=== PATIENT | female | born 1985 | race Caucasian/White ===

== ENCOUNTER 2023-03-13 08:18 | Emergency (ER) | payer MEDICARE ==
[~2023-03-13] VITALS: Ht 160 cm; Wt 63.9 kg
--- NOTE | 2023-03-13 08:59 | ED GU-Female ---
General Chief Complaint: OB < 20 WEEKS Stated Complaint: 18 WEEKS PREG | THINKS WATER BROKE Source: patient Exam Limitations: no limitations History of Present Illness Date Seen by Provider: Mar 13, 2023 Time Seen by Provider: 08:30 Initial Comments Here with report of being approximately 18 weeks and having 2 gushes of fluid this morning. She does admit to being sexually active last night with her boyfriend. Last night she was going to the bathroom and felt like she had a pass gas. She pushed a little bit more and noted to gush of fluid followed by another gush of fluid. She has had some intermittent spotting throughout and that continues. Denies persistent fluid drainage or bleeding cur rently. Has OB care from Dr. Barragan. Denies fever or chills. Denies nausea or vomiting. Denies other concerns. Timing/Duration: this morning Severity/Quality: mild Location: vaginal Radiation: none Activities at Onset: rest Sexual Concrete History: less than 2 months ago Associated Symptoms: No abdominal pain, No fever/chills, No lower back pain, No nausea/vomiting, No urinary frequency Allergies and Home Medications Allergies Coded Allergies: No Known Drug Allergies (Unverified , 03/13/23) Patient Home Medication List Home Medication List Reviewed: Yes Review of Systems Review of Systems Constitutional: see HPI Respiratory: no symptoms reported Cardiovascular: no symptoms reported Gastrointestinal: no symptoms reported Genitourinary: see HPI : Yes Musculoskeletal: no symptoms reported Skin: no symptoms reported Psychiatric/Neurological: No Symptoms Reported Past Euijpso-Cxasod-Zokqgz Hx Patient Social History Tobacco Use?: Yes Tobacco type used: Cigarettes Substance use?: Yes Substance type: Marijuana Alcohol Use?: No Family Medical History Reviewed Nursing Family Hx Physical Exam Vital Signs Vital Signs - First Documented 03/13/23 08:30 Temp 37.1 Pulse 100 Resp 18 B/P (MAP) 121/77 (92) Pulse Ox 98 O2 Delivery Room Air Capillary Refill : Height, Weight, BMI Height: '" Weight: lbs. oz. kg; BMI Method: General Appearance: WD/WN, no apparent distress Neck: full range of motion, supple Cardiovascular: regular rate, rhythm, no murmur Respiratory: lungs clear, normal breath sounds Gastrointestinal: non tender, soft Neurologic/Psychiatric: alert, oriented x 3 Skin: normal color, warm/dry Progress/Results/Core Measures Suspected Sepsis SIRS Temperature: Pulse: Respiratory Rate: Blood Pressure / Mean: Results/Orders Lab Results Laboratory Tests Test 03/13/23 08:39 Range/Units Urine Color YELLOW Urine Clarity CLEAR Urine pH 5.5 5-9 Urine Specific [place] 1.020 1.016-1.022 Urine Protein NEGATIVE NEGATIVE Urine Glucose (UA) NEGATIVE NEGATIVE Urine Ketones NEGATIVE NEGATIVE Urine Nitrite NEGATIVE NEGATIVE Urine Bilirubin NEGATIVE NEGATIVE Urine Urobilinogen 0.2 < = 1.0 MG/DL Urine Leukocyte Esterase NEGATIVE NEGATIVE Urine RBC (Auto) 1+ H NEGATIVE Urine RBC 2-5 H /HPF Urine WBC NONE /HPF Urine Squamous Epithelial Cells 10-25 H /HPF Urine Crystals PRESENT H /LPF Urine Amorphous Sediment FEW DEEP URATES H /LPF Urine Bacteria NEGATIVE /HPF Urine Casts NONE /LPF Urine Mucus NEGATIVE /LPF Urine Culture Indicated NO Micro Results Microbiology 03/13/23 Wet Prep - Final, Complete My Orders Orders - MARGIE AGUILA MD Wet Prep (03/13/23 08:35) Us Limited [id number] (03/13/23 08:35) Ua Culture If Indicated (03/13/23 08:59) Amoxicillin Capsule (Amoxicillin Capsule (03/13/23 09:57) Vital Signs/I&O 03/13/23 08:30 Temp 37.1 Pulse 100 Resp 18 B/P (MAP) 121/77 (92) Pulse Ox 98 O2 Delivery Room Air Capillary Refill : Progress Note : Progress Note Seen and evaluated. We will get ultrasound or OB as well as check nitrazine strip and wet prep. Ordered. Monitor patient. 0905: lawn technician reported that there is scant amniotic fluid but there is heart tones. Nursing able to get heart tones of 165. I have paged on-call for OB for [facility], Dr Escamilla. Monitor patient. 0918: I discussed the case with Dr. Escamilla and he is going to try to get some further information if he can get in contact with maternal- health and he will call me back for further guidance. I did notify the mother of the concerns. She is aware. Pending results. 1007: I have spoken with Dr. Escamilla And he will work on getting follow-up with maternal- health in [place] next week. They are recommending amoxicillin 875 twice daily as well as azithromycin Z-Bruce 5-day. We will initiate amoxicillin 1 g p.o. now as we do not have the 875 version here. She will continue that outpatient. I will also initiate metronidazole 500 mg p.o. as she does have bacterial vaginosis and this was verified with Dr. Escamilla. All of the findings and concerns were discussed with the patient. She has high risk for demise and this was discussed. She was instructed to take temperature twice daily and drink plenty of fluids and follow-up bedrest. Discharged home with return precautions. Patient verbalized understanding of instructions and agreement with plan. Departure Impression Primary Impression: Premature rupture of membranes Qualified Codes: O42.912 - premature rupture of membranes, unspecified as to length of time between rupture and onset of labor, second trimester Additional Impressions: Threatened miscarriage Bacterial vaginosis in Disposition: HOME, SELF-CARE Condition: Stable Departure-Patient Inst. Decision time for Depature: 10:12 Referrals: FARZANA GARCIA MD (PCP/Family) Primary Care Physician Patient Instructions: Premature Rupture of Membranes (DC), Bleeding Later in , Threatened Miscarriage (DC), Bacterial vaginosis Add. Discharge Instructions: All discharge instructions reviewed with patient and/or family. Voiced understanding. Take medications as directed. Drink plenty of fluids. You should rest and no heavy lifting and no intercourse or any other items intravaginally. Follow-up with maternal- health in [place] as scheduled. The clinic will call you for appointment. You should check your temperature twice daily and record. You should return if you are having fever, increased vaginal bleeding especially greater than 2 pads per hour for more than 2 hours, weakness, breathing problems or other concerns as needed. Try to eat a normal diet. Scripts Amoxicillin (Amoxicillin) 875 Mg Tablet 875 MG PO BID for 7 Days, #14 TAB Prov: MARGIE AGUILA MD 03/13/23 Metronidazole (Metronidazole) 500 Mg Tablet 500 MG PO BID, #14 TAB 0 Refills Prov: MARGIE AGUILA MD 03/13/23 Azithromycin (Azithromycin) 250 Mg Tablet 250 MG PO UD, #6 TAB TAKE 2 TABLETS ON DAY ONE THEN TAKE 1 TABLET DAILY FOR FOUR MORE DAYS Prov: MARGIE AGUILA MD 03/13/23 Work/School Note: Work Release Form Date Seen in the Emergency Department: Mar 13, 2023 Return to Work: Mar 20, 2023 Restrictions: Need Release from Doctor Copy Copies To 1: ANTHONY BARRAGAN MD Copies To 2: AZUCENA ESCAMILLA MD, TIMOTHY D MD Mar 13, 2023 08:59
[2023-03-13 09:11] LABS: BILIRUBIN,URINE NEGATIVE (NEGATIVE); CLARITY,URINE CLEAR; COLOR,URINE YELLOW; GLUCOSE, URINE (UA) NEGATIVE (NEGATIVE); KETONES,URINE NEGATIVE (NEGATIVE); LEUKOCYTE ESTERASE ,URINE NEGATIVE (NEGATIVE); NITRITE,URINE NEGATIVE (NEGATIVE); PH,URINE 5.5 (5-9); PROTEIN,URINE NEGATIVE (NEGATIVE)
[2023-03-13 09:12] LABS: AMORPHOUS SEDIMENT,UR FEW AMOR URATES /LPF; BACTERIA,URINE NEGATIVE /HPF
[2023-03-13] MEDS ORDERED: AMOXICILLIN 500 MG CAPSULE PO STA (09:57)
[2023-03-13] MEDS ORDERED: metroNIDAZOLE 500 MG TABLET PO STA (10:06)
[2023-03-13] MEDS ORDERED: AMOX875T2 PO (10:13)
[2023-03-13] MEDS ORDERED: METR-145 PO (10:13)
[2023-03-13] MEDS ORDERED: AZIT250T12 PO (10:13)
[2023-03-13 10:28] VITALS: BP 101/52
--- NOTE | 2023-03-13 10:38 | Diagnostic Imaging Report ---
INDICATION: Leaking fluid, rule out premature rupture of membranes. Limited OB ultrasound There is a single living intrauterine in cephalic presentation. Placenta is anterior and low but not a previa. EDE is severely low. Cervix contains some fluid in the endocervical canal. Cervical length is 3.5 cm. heart rate was 163 bpm. IMPRESSION: Severe oligohydramnios. Dictated by: Dictated on workstation # [id number]
== END 2023-03-13 10:28 | disposition home or self-care (01) ==
LOC: ER 08:22
DX: O20.0 Threatened abortion (principal); O42.912 Preterm premature rupture of membranes, unspecified as to length of time between rupture and onset of labor, second trimester; O23.592 Infection of other part of genital tract in pregnancy, second trimester; B96.89 Other specified bacterial agents as the cause of diseases classified elsewhere; O99.332 Smoking (tobacco) complicating pregnancy, second trimester; F17.210 Nicotine dependence, cigarettes, uncomplicated; Z3A.18 18 weeks gestation of pregnancy
CPT/HCPCS: 76815; 81000; 84703; 87210

== ENCOUNTER 2023-03-15 04:11 | Emergency (ER) | payer MEDICARE ==
[~2023-03-15] VITALS: Ht 160 cm; Wt 63.9 kg
[~2023-03-15 04:11] MED LIST: AMOX875T2 PO; AZIT250T12 PO; METR-145 PO
[2023-03-15] MEDS ORDERED: fentaNYL INJECTION 100 MCG/2 ML VIAL ONE (04:28)
[2023-03-15] MEDS ORDERED: fentaNYL INJECTION 100 MCG/2 ML VIAL IVP ONE ×2 (04:30→05:00)
[2023-03-15] MEDS ORDERED: fentaNYL INJECTION 100 MCG/2 ML VIAL IM ONE (04:30)
--- NOTE | 2023-03-15 04:33 | ED GU-Female ---
General Chief Complaint: OB < 20 WEEKS Stated Complaint: ABD PAIN, CONTRACTIONS,SOB Source: patient Exam Limitations: no limitations History of Present Illness Date Seen by Provider: Mar 15, 2023 Time Seen by Provider: 04:20 Initial Comments Patient is a 37-year-old female approximately 18 weeks who was seen in the emergency room 03-13-2023 with a diagnosis of premature rupture of membranes. She was placed on antibiotics and strict bed rest. This morning at approximately 1 AM she noted onset of contractions. She states they have been coming every 20 minutes or so and getting closer and closer. She complains of severe pain. She is short of breath. She is nauseous. with EDC 08/17/23 (places her at 18 0/7 today). Currently on abx per Dr Fonseca after her visit to the ED on 03-13-23 for PROM. US showed at that time "severe oligohydramnios" with HR 160's. Timing/Duration: this morning (99) Severity/Quality: severe Location: suprapubic Activities at Onset: none Associated Symptoms: nausea/vomiting Allergies and Home Medications Allergies Coded Allergies: No Known Drug Allergies (Unverified , 03/13/23) Patient Home Medication List Home Medication List Reviewed: Yes Amoxicillin (Amoxicillin) 875 Mg Tablet, 875 MG PO BID Prescribed by: MARGIE AGUILA on 03/13/23 1013 Azithromycin (Azithromycin) 250 Mg Tablet, 250 MG PO UD Prescribed by: MARGIE AGUILA on 03/13/23 1013 Metronidazole (Metronidazole) 500 Mg Tablet, 500 MG PO BID Prescribed by: MARGIE AGUILA on 03/13/23 1013 Review of Systems Review of Systems Constitutional: see HPI Gastrointestinal: abdominal pain Genitourinary: discharge : Yes Expected Date of Delivery: Aug 17, 2023 Musculoskeletal: no symptoms reported Skin: no symptoms reported Past Hmrmquj-Jqcogv-Jwwzts Hx Immunizations Up To Date First/Initial COVID19 Vaccinat: NOT VACC Past Medical History Surgery/Hospitalization HX: DENIES Physical Exam Vital Signs Vital Signs - First Documented 03/15/23 04:18 Temp 36.0 Pulse 111 Resp 36 B/P (MAP) 101/81 (88) Pulse Ox 100 O2 Delivery Room Air Capillary Refill : Height, Weight, BMI Height: '" Weight: lbs. oz. kg; 24.00 BMI Method: General Appearance: WD/WN, moderate distress HEENT: PERRL/EOMI Cardiovascular: regular rate, rhythm, tachycardia Respiratory: lungs clear, normal breath sounds, no respiratory distress, no accessory muscle use Gastrointestinal: soft, other (fundus just below umbilicus; ) Pelvic: other (fetus palpated in the vaginal vault) Extremities: normal range of motion, normal inspection Neurologic/Psychiatric: no motor/sensory deficits, alert, oriented x 3 Skin: normal color, warm/dry Progress/Results/Core Measures Suspected Sepsis SIRS Temperature: Pulse: Respiratory Rate: Laboratory Tests 03/15/23 04:25: White Blood Count 24.7H Blood Pressure / Mean: Laboratory Tests 03/15/23 04:25: Platelet Count 239 Results/Orders Lab Results Laboratory Tests Test 03/15/23 04:25 Range/Units White Blood Count 24.7 H 4.3-11.0 10^3/uL Red Blood Count 4.03 3.80-5.11 10^6/uL Hemoglobin 13.1 11.5-16.0 g/dL Hematocrit 38 35-52 % Mean Corpuscular Volume 94 80-99 fL Mean Corpuscular Hemoglobin 33 25-34 pg Mean Corpuscular Hemoglobin Concent 35 32-36 g/dL Red Cell Distribution Width 14.4 10.0-14.5 % Platelet Count 239 130-400 10^3/uL Mean Platelet Volume 9.6 9.0-12.2 fL Immature Granulocyte % (Auto) 1 % Neutrophils (%) (Auto) 82 H 42-75 % Lymphocytes (%) (Auto) 10 L 12-44 % Monocytes (%) (Auto) 7 0-12 % Eosinophils (%) (Auto) 0 0-10 % Basophils (%) (Auto) 0 0-10 % Neutrophils # (Auto) 20.2 H 1.8-7.8 10^3/uL Lymphocytes # (Auto) 2.5 1.0-4.0 10^3/uL Monocytes # (Auto) 1.7 H 0.0-1.0 10^3/uL Eosinophils # (Auto) 0.1 0.0-0.3 10^3/uL Basophils # (Auto) 0.1 0.0-0.1 10^3/uL Immature Granulocyte # (Auto) 0.1 0.0-0.1 10^3/uL My Orders Orders - ADRIANNE BEAN MD Fentanyl Injection (Fentanyl Injection (03/15/23 04:30) Ed Iv/Invasive Line Start (03/15/23 04:28) Cbc With Automated Diff (03/15/23 04:28) Fentanyl Injection (Fentanyl Injection (03/15/23 04:30) Fentanyl Injection (Fentanyl Injection (03/15/23 04:28) Manual Differential (03/15/23 04:25) Lactated Ringers 1,000 Ml (Lactated Ring (03/15/23 04:45) Fentanyl Injection (Fentanyl Injection (03/15/23 05:00) Medications Given in ED Current Medications Medications Dose Ordered Sig/Tamie Route Start Time Stop Time Status Last Admin Dose Admin Fentanyl Citrate 50 mcg ONCE ONCE IM 03/15/23 04:30 03/15/23 04:31 DC 03/15/23 04:33 50 MCG Fentanyl Citrate 50 mcg ONCE ONCE IVP 03/15/23 04:30 03/15/23 04:31 DC 03/15/23 04:31 50 MCG Vital Signs/I&O 03/15/23 04:18 Temp 36.0 Pulse 111 Resp 36 B/P (MAP) 101/81 (88) Pulse Ox 100 O2 Delivery Room Air Capillary Refill : Progress Note : Time: 04:54 Progress Note Patient seen and evaluated by me - evaluation today includes physical exam and CBC. Pertinent physical exam findings, thin female moderated distress due to abdominal pain. Obviously leonora. Gentle pelvic exam demonstrates palpable fetus in the vaginal vault with blood mucousy discharge. Patient actively in labor with . Case discussed with Dr Levin, on for [facility], [facility] for imminent delivery of nonviable infant. PAtient was treated with 50mcg fentanyl IM and 50mcg IV, also 1L LR hung. CBC not resulted at the time patient taken upstairs to OB. VSS - systolic BP 101 at the time of admission. Departure Communication (Admissions) Discussed with Dr Levin (rehabilitation physician for OB - [facility]) Impression Primary Impression: demise, less than 22 weeks Disposition: ADMITTED INPATIENT Condition: Stable Admissions Decision to Admit Reason: Admit from ER (General) Decision to Admit/Date: Mar 15, 2023 Time/Decision to Admit Time: 04:43 Departure-Patient Inst. Referrals: FARZANA GARCIA MD (PCP/Family) Primary Care Physician Copy Copies To 1: ANTHNOY BARRAGAN MD, KATHRYN M MD Mar 15, 2023 04:33
[2023-03-15 04:34] LABS: BASOPHILS # (AUTO) 0.1 10^3/uL (0.0-0.1); BASOPHILS % (AUTO) 0 % (0-10); EOSINOPHILS # (AUTO) 0.1 10^3/uL (0.0-0.3); EOSINOPHILS % (AUTO) 0 % (0-10); HEMATOCRIT 38 % (35-52); HEMOGLOBIN 13.1 g/dL (11.5-16.0); LYMPHOCYTES # (AUTO) 2.5 10^3/uL (1.0-4.0); LYMPHOCYTES % (AUTO) 10 % (12-44); MEAN CORPUSCULAR HEMOGLOBIN 33 pg (25-34); MEAN CORPUSCULAR HGB CONC 35 g/dL (32-36); MEAN CORPUSCULAR VOLUME 94 fL (80-99); MEAN PLATELET VOLUME 9.6 fL (9.0-12.2); MONOCYTES # (AUTO) 1.7 10^3/uL (0.0-1.0); MONOCYTES % (AUTO) 7 % (0-12); NEUTROPHILS # (AUTO) 20.2 10^3/uL (1.8-7.8); NEUTROPHILS % (AUTO) 82 % (42-75); PLATELET COUNT 239 10^3/uL (130-400); WHITE BLOOD COUNT 24.7 10^3/uL (4.3-11.0)
[2023-03-15] MEDS ORDERED: LACTATED RINGERS 1,000 ML 1,000 ML IV SCH (04:45)
[2023-03-15 04:48] VITALS: BP 103/57
[2023-03-15 04:54] LABS: BAND NEUTROPHILS 7 %; LYMPHOCYTES % (MANUAL) 4 %; MONOCYTES % (MANUAL) 12 %; NEUTROPHILS % (MANUAL) 73 %; REACTIVE LYMPHOCYTES 4 %
[2023-03-15] MEDS ORDERED: ACHD5005 PO (08:51)
[2023-03-15] MEDS ORDERED: DOXY100C5 PO (08:54)
--- NOTE | 2023-03-16 08:24 | Anesthesia-General Post-Op ---
General Significant Intra-Op Events Notes late entry 03/15/23@ 1030 Patient Condition Mental Status/LOC: Same as Preop Cardiovascular: Satisfactory Nausea/Vomiting: Absent Respiratory: Satisfactory Pain: Controlled Complications: Absent Post Op Complications Complications None Follow Up Care/Instructions Patient Instructions None needed. Anesthesia/Patient Condition Patient Condition Patient is doing well, no complaints, stable vital signs, no apparent adverse anesthesia problems. No complications reported per nursing. ROMEO RODRIGUEZ CRNA Mar 16, 2023 08:24
== END 2023-03-15 04:48 | disposition other institution (70) ==
LOC: EDUNIT# 04:11 → ER 04:14
DX: O35.9XX0 Maternal care for (suspected) fetal abnormality and damage, unspecified, not applicable or unspecified (principal); Z3A.18 18 weeks gestation of pregnancy; Z28.310 Unvaccinated for COVID-19
CPT/HCPCS: 36415; 85007; 85027

== ENCOUNTER 2023-03-15 04:48 | Observation (INO) | payer MEDICARE ==
[~2023-03-15] VITALS: Ht 160 cm; Wt 63.9 kg
[2023-03-15] VITALS (10 sets, daily range): BP systolic 85–115; BP diastolic 48–65
[2023-03-15] MEDS ORDERED: LACTATED RINGERS 1,000 ML 1,000 ML IV SCH (06:15)
[2023-03-15] MEDS ORDERED: fentaNYL INJECTION 100 MCG/2 ML VIAL ONE ×2 (06:36→06:38)
[2023-03-15] MEDS ORDERED: proPOfol INJECTION 200 MG/20 ML VIAL IV ONE (06:38)
[2023-03-15] MEDS ORDERED: MIDAZOLAM INJ 2 MG/2 ML VIAL ONE (06:38)
[2023-03-15] MEDS ORDERED: LIDOCAINE PF 2% 5 ML VIAL ONE (06:38)
[2023-03-15] MEDS ORDERED: fentaNYL INJECTION 100 MCG/2 ML VIAL IVP ONE ×2 (06:45→07:00)
--- NOTE | 2023-03-15 06:47 | History & Physical-OB ---
MALI KEY MD 03/15/23 0647: OB - Chief Complaint & HPI Date/Time Date of Admission: Date of Admission: Mar 15, 2023 at 04:49 Date seen by a Provider: Mar 15, 2023 Time Seen by a Provider: 05:00 Chief Complaint/History OB-Reason for Admission/Chief: Labor Hx : 5 Hx Para: 2 Expected Date of Delivery: Aug 17, 2023 Gestational Age in Weeks: 17 Gestational Age in Days: 6 Other reason for admission: Pt is a 37yo at 17w6d, who presented to ED in spontaneous labor early this morning. She felt painful contractions and decided to come to the ED. On brief pelvic exam in ED, head was noted in the vault. She was admitted to L & D for further management. She denies fevers, chills, CP, SOB. She has felt nauseous since being seen in the ED on 03/13, and has felt more painful contractions. Pt denies any drug use except for THC use, the last time was prior to 03/12. She reports +LOF, +VB, +CTX, -FM. To note, on 03/13, she was seen in the ED for , premature rupture of memb ranes. Pt reports that on the evening of 03/12, after she and her partner had intercourse she felt a gush of clear fluid. She did not feel any contractions at that time so did not present to the ED until the next morning. In the ED at that time, tests were positive for PPROM, and BV. She was started on azithromycin, amoxicillin and metronidazole and discharged home. Allergies and Home Medications Allergies Coded Allergies: No Known Drug Allergies (Unverified , 03/13/23) Patient Home Medication List Home Medication List Reviewed: Yes Doxycycline Hyclate (Doxycycline Hyclate) 100 Mg Capsule, 100 MG PO BID Prescribed by: Orestes Nguyen on 03/15/23 0806 Hydrocodone/Acetaminophen (Hydrocodone-Acetamin 5-325 mg) 5 Mg-325 Mg Tablet, 1 TAB PO Q4H PRN for PAIN-MODERATE (5-7) Prescribed by: Orestes Nguyen on 03/15/23 0852 Discontinued Medications Amoxicillin (Amoxicillin) 875 Mg Tablet, 875 MG PO BID Discontinued Reason: No Longer Taking Prescribed by: MARGIE AGUILA on 03/13/23 1013 Last Action: Discontinued Azithromycin (Azithromycin) 250 Mg Tablet, 250 MG PO UD Discontinued Reason: No Longer Taking Prescribed by: MARGIE MORALESBBINS on 03/13/23 101 Last Action: Discontinued Metronidazole (Metronidazole) 500 Mg Tablet, 500 MG PO BID Discontinued Reason: No Longer Taking Prescribed by: MARGIE MORALESBBINS on 03/13/23 1013 Last Action: Discontinued OB - History Hx of Present Care: Yes Ultrasounds: Abnormal US findings Obstetrical Complications: Other (oligohydramnios) Medical Complications: None Information Induced Hypertension: No Maternal Gestational Diabetes: No Hemorrhage: No Obstetrical History Hx : 5 Hx Para: 2 Hx # Term Pregnancies: 2 Number of Living Children: 2 Hx Termination: Yes Hx Total # of Abortions (Spona: 2 Patient Past Medical History Pt has h/o EtOH abuse. No other significant medical history. Social History/Family History Recreational Drug Use: Yes (Edibles) 2nd Hand Smoke Exposure: Yes Immunizations First/Initial COVID19 Vaccine: NOT VACC Second COVID19 Vaccination: NOT VACC Third COVID19 Vaccination Date: NOT VACC OB - Admission Exam Physical Exam Vitals: Vital Signs 03/15/23 05:15 Temp 36.5 Heart: Rhythm Normal Lungs: Clear Abdomen: Non tender Extremities: Normal Membranes: Ruptured Contractions on Admission: < 5 Minutes Apart Labs Laboratory Tests Test 03/15/23 04:25 Range/Units OB - Assessment/Plan/Diagnosis Assessment Assessment: labor Admission Dx demise prior to 22wks gestation. Admission Status: Observation Reason for Inpatient Admission: labor Plan Plan: Expectant Management Problems: (1) demise, less than 22 weeks Assessment & Plan: Pt spontaneously delivered a nonviable fetus at 17w6d gestation. Pt was given fentanyl 50 mcg IV for pain management Placenta was attempted to be extracted manually, however due to separation of the umbilical cord and excessive sheering of the placenta, further retrieval required the OR for removal of retained products of conception. Dr. Nguyen OBGYN was consulted and Pt was taken to OR for D&E. Pt to follow-up with her OBGYN within the next week. (2) Premature rupture of membranes Assessment & Plan: Likely occurred on 03/12. Abx were given in ED on 03/13. LEYDI LEGGETT MD 03/15/23 1612: Allergies and Home Medications Allergies Coded Allergies: No Known Drug Allergies (Unverified , 03/13/23) Patient Home Medication List Doxycycline Hyclate (Doxycycline Hyclate) 100 Mg Capsule, 100 MG PO BID Prescribed by: Orestes Nguyen on 03/15/23 0854 Hydrocodone/Acetaminophen (Hydrocodone-Acetamin 5-325 mg) 5 Mg-325 Mg Tablet, 1 TAB PO Q4H PRN for PAIN-MODERATE (5-7) Prescribed by: Orestes Nguyen on 03/15/23 0852 Discontinued Medications Amoxicillin (Amoxicillin) 875 Mg Tablet, 875 MG PO BID Discontinued Reason: No Longer Taking Prescribed by: MARGIE AGUILA on 03/13/23 1013 Last Action: Discontinued Azithromycin (Azithromycin) 250 Mg Tablet, 250 MG PO UD Discontinued Reason: No Longer Taking Prescribed by: MARGIE AGUILA on 03/13/23 1013 Last Action: Discontinued Metronidazole (Metronidazole) 500 Mg Tablet, 500 MG PO BID Discontinued Reason: No Longer Taking Prescribed by: MARGIE AGUILA on 03/13/23 1013 Last Action: Discontinued Supervisory-Addendum Brief Supervisory Addendum When I arrived at bedside, fetus had been delivered (had been delivered prior to reisdent arrival) and nursing reported unable to find umbilical cord. She was not actively bleeding, but continued to have significant pain and contractions. Sterile speculum placed in vagina and products of conception noted at cervical os, grasped with ring forceps gently, but only able to retrieve a few small pieces some appearing to be placental and others clot. No further tissue spontaneously passing and patient extremely uncomfortable, unable to tolerate much in the way of vaginal exam. Consulted Cloth Baler for D and C due to suspected retained products. I personally have seen and evaluated the patient and performed a physical exam. I agree with the documented assessment and plan. MALI KEY MD Mar 15, 2023 06:47 LEYDI LEGGETT MD Mar 15, 2023 16:12
--- NOTE | 2023-03-15 06:51 | Anesthesia-Regional Post-Op ---
Regional Patient Condition Mental Status: Alert, Oriented x3 Circulation: Same as Pre-Op Headache: Absent Sensation: Full Recovery Motor Block: Absent Post Op Complications Complications None Follow Up Care/Instructions Patient Instructions None needed. Anesthesia/Patient Condition Patient is doing well, no complaints, stable vital signs, no apparent adverse anesthesia problems. No complications reported per nursing. ROMEO RODRIGUEZ CRNA Mar 15, 2023 06:51
[2023-03-15] MEDS ORDERED: ONDANSETRON INJECTION 4 MG/2 ML (SDV) IVP PRN (07:00)
[2023-03-15] MEDS ORDERED: HYDROmorphone INJECTION 2 MG/ML VIAL IV ONE (07:00)
[2023-03-15] MEDS: LACTATED RINGERS 1,000 ML 1,000 ML IV PRN ×2 (07:07→07:35)
[2023-03-15] MEDS ORDERED: OXYTOCIN INJECTION 10 UNIT/ML VIAL ONE (07:28)
[2023-03-15] MEDS ORDERED: SEVOFLURANE (ULTANE) 15 ML INHAL SOLN ONE (07:33)
[2023-03-15] MEDS ORDERED: SUCCINYLCHOLINE INJ 20 MG/1 ML 10 ML VIAL ONE (07:33)
[2023-03-15] MEDS ORDERED: ONDANSETRON INJECTION 4 MG/2 ML (SDV) ONE (07:33)
[2023-03-15] MEDS ORDERED: dexAMETHasone INJ 10 MG/ML 1 ML VIAL ONE (07:33)
[2023-03-15] MEDS ORDERED: TRANEXAMIC ACID 100 MG/ML 10 ML INJECTION ONE (07:41)
[2023-03-15] MEDS ORDERED: HYDROmorphone INJECTION 2 MG/ML VIAL ONE (07:42)
[2023-03-15] MEDS ORDERED: CARBOPROST 250 MCG/ML 1 ML AMPULE IM ONE (07:44)
[2023-03-15] MEDS ORDERED: NALOXONE 0.4 MG/ML 1 ML VIAL IV PRN (08:30)
[2023-03-15] MEDS ORDERED: oxyCODONE IMMEDIATE RELEASE 5 MG TABLET PO PRN (08:30)
[2023-03-15] MEDS ORDERED: D5 LR 1,000 ML IV SOLN 1,000 ML IV SCH (08:30)
[2023-03-15] MEDS ORDERED: METOCLOPRAMIDE INJ 10 MG/2 ML IV PRN (08:30)
--- NOTE | 2023-03-15 08:42 | Hysteroscopy D&C Operative ---
Hysteroscopy D&C Note Hysteroscopy D&C Note Date of Procedure: 03/15/23 Preoperative Diagnosis: Layne Howard is a (37 /Para 5 / 2, Gestational Age (wks)17 s/p a missed and retained placenta. She delivered the fetus in the ER this morning with a small amount of placenta coming out. Postoperative Diagnosis: Same. See pathology report. Surgeon: MICHELLE LÓPEZ DO. Abrasive Worker: Delia Deluca MD. Anesthesia: General Name of the Procedure: Suction evacuation and curettage. Findings of the Procedure: The uterus measured 13cm. A large amount of placental tissue was obtained. EBL: 400ml Specimen(s) collected/removed: Placenta. Complications: None Condition: Stable to recovery room Indications for Procedure: /Para 5 / 2 presenting with missed (passed 17-wk fetus in the ER) and retained placanta. Risks, benefits and alternatives to the proposed procedure were discussed with the patient and informed consent was obtained. Specifically we discussed the risk of bleeding, infection, Asherman's syndrome, and uterine perforation and therefore risk of injury to bowel, bladder, and ureters. We also discussed the risk of her passing tissue still and the small risk of needing a 2nd surgery later. Description of Procedure: The patient was taken to the operating room and placed in the dorsal supine position. General anesthesia was obtained without difficulty by our anesthesia colleagues. Her legs were placed in stirrups and she was moved to the dorsal lithotomy position. The vagina, perineum and vulva were prepped and draped in the typical sterile fashion. The bladder was emptied. A weighted speculum was placed in the vaginal vault. Part of the placenta was noted to be coming out. It was grasped with ring forceps and delivered. The anterior lip of the cervix was grasped with a ring forcep. The cervix was already dilated to accomodate the #12 suction device. It was activated at a pressure of 40mmHg. This was followed by a gentle sharp curettage. There was a fair amount of bleeding so she was given IV Pitocin, IM Methergine, IM Hemabate and IV TXA. This helped and her uterus became firm and the bleeding improved greatly. The procedure was complete and all instruments were removed from the vagina. Sponge and instrument counts were correct. The patient was awakened from anesthesia and taken to the recovery room in stable condition. Vitals - Labs Vital Signs - I&O Vital Signs Date Time Temp Pulse Resp B/P (MAP) Pulse Ox O2 Delivery O2 Flow Rate FiO2 03/15/23 06:40 36.5 80 18 96/53 (67) Room Air 03/15/23 06:25 77 93/53 (66) 03/15/23 05:47 81 95/54 (68) 03/15/23 05:15 36.5 Labs Laboratory Tests 03/15/23 04:25: Syphilis Total Antibody Negative MICHELLE LÓPEZ DO Mar 15, 2023 08:42
[2023-03-15] MEDS ORDERED: ACHD5005 PO (08:51)
[2023-03-15] MEDS ORDERED: DOXY100C5 PO (08:54)
--- NOTE | 2023-03-15 08:56 | Discharge Inst-Simple/Standard ---
Discharge Inst-Standard Reconcile Patient Problems Problems Reviewed?: Yes Discharge Medications New, Converted or Re-Newed RX: Transmitted to Pharmacy Patient Instructions/Follow Up Plan of Care/Instructions/FU: F/U with Dr Eason in 1wk. Activity as Tolerated: Yes Discharge Diet: No Restrictions Return to The Hospital For: Fevers, chills, worsening pain or heavy bleeding. MICHELLE LÓPEZ DO Mar 15, 2023 08:56
[2023-03-15] MEDS ORDERED: CATHETER FLUSH 10 ML SYR IV SCH (14:00)
[2023-03-17 14:55] LABS: HEPATITIS C ANTIBODY C Non-Reactive (Non-Reactive)
== END 2023-03-15 12:25 | disposition home or self-care (01) ==
LOC: WSo 04:48 → LDRP 04:49
PROVIDERS: ADMIT Family Medicine; ATTEND Family Medicine
DX: O36.4XX0 Maternal care for intrauterine death, not applicable or unspecified (principal); O42.912 Preterm premature rupture of membranes, unspecified as to length of time between rupture and onset of labor, second trimester; O72.0 Third-stage hemorrhage; Z28.310 Unvaccinated for COVID-19; Z87.891 Personal history of nicotine dependence; Z37.1 Single stillbirth; Z3A.17 17 weeks gestation of pregnancy
CPT/HCPCS: 36415; 86762; 86780; 86803; 86850; 86900; 86901; 87340; 87389; 96361